=== PATIENT | male | born 1960 | race Caucasian/White ===

== ENCOUNTER → 2017-07-29 | Outpatient (CLI) | payer OTHER ==
[2017-07-29 09:31] LABS: Basophils % (A) 0 %; Eosinophils # (A) 0.2 k/uL (0-0.7); Eosinophils % (A) 2 %; HCT 44.8 % (39.0-53.0); HGB 14.4 gm/dL (13.0-17.5); Lymphocytes # (A) 1.4 k/uL (1.0-4.8); Lymphocytes % (A) 20 %; MCH 29.9 pg (25.0-35.0); MCHC 32.1 g/dL (31.0-37.0); Mean Platelet Volume 7.4; Monocytes # (A) 0.5 k/uL (0-1.0); Monocytes % (A) 6 %; Neutrophils % (A) 70 %; Platelet Count 252 k/uL (150-450); RBC 4.82 m/uL (4.30-5.90); WBC 7.2 k/uL (3.8-10.6)
[2017-07-29 09:45] LABS: ALT 32 U/L (21-72); AST 29 U/L (17-59); Albumin 4.2 g/dL (3.5-5.0); Alkaline Phosphatase 68 U/L (38-126); Anion Gap 11 mmol/L; Blood Urea Nitrogen 22 mg/dL (9-20); Calcium 9.3 mg/dL (8.4-10.2); Carbon Dioxide 29 mmol/L (22-30); Chloride 105 mmol/L (98-107); Glucose 102 mg/dL (74-99); Potassium 4.7 mmol/L (3.5-5.1); Sodium 145 mmol/L (137-145); Total Bilirubin 1.1 mg/dL (0.2-1.3); Total Protein 6.8 g/dL (6.3-8.2)
[2017-07-29 16:39] LABS: Hemoglobin A1C 5.3 % (4.0-6.0)
== END | disposition home or self-care (01) ==
LOC: LABWHC1 08:57
PROVIDERS: ATTEND Internal Medicine Endocrinology, Diabetes & Metabolism
DX: E11.65 Type 2 diabetes mellitus with hyperglycemia (principal); E29.1 Testicular hypofunction; R73.03 Prediabetes
CPT/HCPCS: 36415; 80053; 82306; 83036; 84402; 84403; 85025

== ENCOUNTER → 2017-12-03 | Outpatient (CLI) | payer OTHER ==
[2017-12-03 08:50] LABS: Basophils % (A) 1 %; Eosinophils # (A) 0.2 k/uL (0-0.7); Eosinophils % (A) 3 %; HCT 47.1 % (39.0-53.0); HGB 15.6 gm/dL (13.0-17.5); Lymphocytes # (A) 1.6 k/uL (1.0-4.8); Lymphocytes % (A) 27 %; MCH 30.3 pg (25.0-35.0); MCHC 33.2 g/dL (31.0-37.0); MCV 91.4 fL (80.0-100.0); Mean Platelet Volume 6.3; Monocytes # (A) 0.4 k/uL (0-1.0); Monocytes % (A) 7 %; Neutrophils # (A) 3.5 k/uL (1.3-7.7); Neutrophils % (A) 60 %; Platelet Count 248 k/uL (150-450); RBC 5.15 m/uL (4.30-5.90); RDW 12.4 % (11.5-15.5); WBC 5.9 k/uL (3.8-10.6)
[2017-12-03 09:13] LABS: Albumin 4.4 g/dL (3.5-5.0); Calcium 8.8 mg/dL (8.4-10.2); Potassium 4.6 mmol/L (3.5-5.1); Total Protein 6.9 g/dL (6.3-8.2)
[2017-12-03 09:28] LABS: T4, Free (Free Thyroxine) 0.97 ng/dL (0.78-2.19)
[2017-12-03 20:08] LABS: Hemoglobin A1C 5.4 % (4.0-6.0)
== END | disposition home or self-care (01) ==
LOC: LABWHC1 08:29
PROVIDERS: ATTEND Internal Medicine Endocrinology, Diabetes & Metabolism
DX: E03.9 Hypothyroidism, unspecified (principal); E11.65 Type 2 diabetes mellitus with hyperglycemia; E29.1 Testicular hypofunction
CPT/HCPCS: 36415; 80053; 80061; 83036; 84402; 84403; 84439; 84443; 85025

== ENCOUNTER → 2018-06-02 | Outpatient (CLI) | payer OTHER ==
[2018-06-02 14:01] LABS: Basophils # (A) 0.1 k/uL (0-0.2); Basophils % (A) 1 %; Eosinophils # (A) 0.2 k/uL (0-0.7); Eosinophils % (A) 2 %; HCT 48.7 % (39.0-53.0); HGB 15.9 gm/dL (13.0-17.5); Lymphocytes # (A) 2.4 k/uL (1.0-4.8); Lymphocytes % (A) 32 %; MCH 30.2 pg (25.0-35.0); MCHC 32.7 g/dL (31.0-37.0); MCV 92.3 fL (80.0-100.0); Mean Platelet Volume 6.4; Monocytes # (A) 0.4 k/uL (0-1.0); Monocytes % (A) 6 %; Neutrophils # (A) 4.2 k/uL (1.3-7.7); Neutrophils % (A) 57 %; Platelet Count 263 k/uL (150-450); RBC 5.28 m/uL (4.30-5.90); RDW 12.4 % (11.5-15.5); WBC 7.4 k/uL (3.8-10.6)
[2018-06-02 17:53] LABS: Albumin 4.5 g/dL (3.80-4.90); Albumin/Globulin Ratio 2.37 (1.20-2.10); Anion Gap 5.4 mmol/L (4.00-12.00); Calcium 8.8 mg/dL (8.7-10.3); Carbon Dioxide 28.6 mmol/L (21.6-31.8); Globulin 1.9 g/dL (2.1-3.7); LDL Cholesterol,Calculated 126.6 mg/dL (0.0-131.0); Potassium 4.5 mmol/L (3.5-5.5); Total Bilirubin 2.1 mg/dL (0.3-1.2); Total Protein 6.4 g/dL (6.2-8.2); VLDL Calculation 14.4 mg/dL (5.00-40.00)
[2018-06-02 21:14] LABS: Hemoglobin A1C 5.2 % (4.0-6.0)
== END | disposition home or self-care (01) ==
LOC: LABWHC1 13:24
PROVIDERS: ATTEND Internal Medicine Endocrinology, Diabetes & Metabolism
DX: E29.1 Testicular hypofunction (principal); E11.65 Type 2 diabetes mellitus with hyperglycemia; E03.9 Hypothyroidism, unspecified; Z12.5 Encounter for screening for malignant neoplasm of prostate
CPT/HCPCS: 36415; 80053; 80061; 83036; 84153; 84402; 84403; 85025